=== PATIENT | female | born 1965 | race Caucasian/White ===

== ENCOUNTER 2016-08-31 10:28 | Emergency (ER) | payer OTHER, BC ==
[~2016-08-31] VITALS: Ht 165.1 cm; Wt 55.9 kg
[2016-08-31 10:42] VITALS: BP 130/88; TEMP 36.7; Ht 165.1 cm; Wt 55.9 kg
[2016-08-31] MEDS ORDERED: GABA-113 PO (11:20)
[2016-08-31] MEDS ORDERED: MONT1TAB5 PO (11:20)
[2016-08-31] MEDS ORDERED: NAPR1TAB9 PO (11:20)
[2016-08-31] MEDS ORDERED: SPIR25TA PO (11:20)
--- NOTE | 2016-08-31 11:58 | DIAGNOSTIC IMAGING REPORT ---
PA CHEST WITH RIGHT-SIDED RIB SERIES CLINICAL HISTORY: Right-sided chest wall pain. FINDINGS: A PA chest radiograph with 4 additional views may right-sided rib series is compared to chest x-ray and right-sided rib series dated 05/16/2013. The cardiomediastinal silhouette is unremarkable. The lungs and pleural spaces are clear. No pneumothorax is seen. There is no radiographic evidence of acute/distracted right-sided rib fracture on the rib series. There are healed right anterior 9th and 10th rib fractures. The remainder of the bony thorax is grossly intact. IMPRESSION: 1. The lungs are clear. 2. There is no radiographic evidence of acute right-sided rib fracture as clinically queried. Electronically signed by: Phong Perez M.D. 08/31/2016 11:57 AM Dictated Date/Time: 08/31/2016 11:55 AM
[2016-08-31 12:31] VITALS: PULSE 96; O2SAT 95
--- NOTE | 2016-09-02 08:51 | EMERGENCY ROOM VISIT NOTE ---
ED Visit Note First contact with patient: 11:00 Chief Complaint: Right sided rib pain. History of Present Illness: Ms. Rodriguez is a 51-year-old white female who ambulates into the ED complaining of right lower rib pain. 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 Since that time her pain has been constant. She describes her pain as a sharp sensation. She rates her discomfort 7/10. The pain is located over her ribs 8 through 11 anteriorly and over the anterior axillary line. Her pain is nonradiating. Her pain worsens with deep inspiration and she reports she has a mild productive cough that is been ongoing in that worsens her discomfort. Her pain is slightly relieved when she is not breathing deeply or coughing. She has not taken any medications for pain prior to arrival at the hospital. She denies any associated symptoms including shortness of breath/wheezing, hemoptysis, fevers. Review of Systems: As noted above in history of present illness. 5 body systems were reviewed and found to be negative as noted above. Past Medical History: Asthma Current Medications: Aldactone, montelukast, Neurontin, Aleve. Allergies to Medications: Patient denies. Social History: Patient is currently employed; she feels safe in her home environment; she admits to tobacco and alcohol use. Physical Examination: Vital Signs: Date Time Temp Pulse Resp B/P Pulse Ox O2 Delivery O2 Flow Rate FiO2 08/31/16 12:31 96 18 95 Room Air 08/31/16 10:42 36.7 93 17 130/88 95 Room Air GENERAL: 51-year-old female in mild to moderate distress due to pain, nontoxic- appearing, afebrile and hemodynamically stable. NEUROLOGICAL: Awake, alert and oriented to person, place and time. Answering questions appropriately and following commands. Normal gait. SKIN: Warm, dry and pink. No soft tissue eruptions or trauma noted. HEENT: Atraumatic and normocephalic. BACK: No tenderness over the bony cervical and thoracic spine. No CVA tenderness. THORAX: Lungs sounds are clear to auscultation and equal bilaterally with symmetrical chest wall. No wheezing, rales or rhonchi. Moderate tenderness over the right inferior anterior lateral ribs without bony deformity, bony crepitus, soft tissue injury or subcutaneous air. ABDOMEN: Flat, soft and nontender. Positive bowel sounds in all quadrants. No guarding, rigidity or organomegaly. ED Course: Patient is assessed as noted above. PA Chest with Right Rib X-Rays: Were read by myself and the radiologist and shows no acute infiltrates, effusions or pneumothorax. Normal heart silhouette. No acute rib fractures or bony abnormality. Radiologist does note healed right anterior ninth and 10 rib fractures. Patient was offered pain medication and refused. Prior to discharge patient was offered a rib belt and refused. Patient was educated about tonight's findings and instructed on her treatment plan; she verbalized understanding and agreement with this plan. Clinical Impression: Right sided rib pain. Work related injury. Decision-Making: Initially my differential diagnosis I considered rib fracture, costochondritis, pneumothorax, lung contusion and other causes. Disposition: Patient discharged home in stable condition; prior to departure she was reassessed and subjectively reported she was feeling the same and rated her discomfort 7/10. Plan: Basic comfort measures were discussed with the patient. Patient was encouraged to avoid heavy lifting and instructed on proper lifting and moving techniques. Patient was encouraged to follow-up with Workmen's Compensation if no better in 3-6 days. Patient was encouraged return the ED for worsening/uncontrolled pain, shortness of breath, fevers, coughing up blood or any new/concerning symptoms.
== END 2016-08-31 12:31 | disposition home or self-care (01) ==
LOC: C.EDB 10:29 → C.EDD 12:31
DX: R07.81 Pleurodynia (principal); X50.1XXA Overexertion from prolonged static or awkward postures, initial encounter; Y92.89 Other specified places as the place of occurrence of the external cause; Y99.0 Civilian activity done for income or pay; J45.909 Unspecified asthma, uncomplicated; Z79.899 Other long term (current) drug therapy; Z72.0 Tobacco use